=== PATIENT | female | born 1985 | race African-American/Black ===

== ENCOUNTER 2016-10-18 22:18 | Emergency (ER) | payer MEDICAID, OTHER ==
[~2016-10-18] VITALS: Ht 167.6 cm; Wt 49.0 kg
[2016-10-18 22:26] VITALS: BP 153/75
== END 2016-10-18 23:30 | disposition left against medical advice (07) ==
LOC: ER 22:31
DX: Z53.21 Procedure and treatment not carried out due to patient leaving prior to being seen by health care provider (principal)